=== PATIENT | male | born 1945 | race Caucasian/White ===

== ENCOUNTER → 2020-12-24 | Outpatient (CLI) | payer MEDICARE ==
--- NOTE | 2020-12-24 13:28 | Diagnostic Imaging Report ---
INDICATION: Bilateral knee pain with inflammatory polyarthropathy. Four views nonweightbearing. AP and lateral views of both knees show [id number] arthritic changes throughout the joint spaces with mild narrowing of the joint spaces and mild hypertrophic changes along the medial and lateral tibial plateau and femoral condyle. Patellofemoral joints show good alignment with mild hypertrophic change. Articulating surfaces are smooth without evidence of cortical fractures. No chondrocalcinosis or loose body. IMPRESSION: [id number] arthritic changes noted throughout both knees. Dictated by: Dictated on workstation # [id number]
== END ==
LOC: RAD FS 09:36
PROVIDERS: ATTEND Emergency Medicine
DX: M17.0 Bilateral primary osteoarthritis of knee (principal); M06.4 Inflammatory polyarthropathy

== ENCOUNTER → 2021-02-07 | Outpatient (CLI) | payer MEDICARE ==
--- NOTE | 2021-02-07 08:39 | Diagnostic Imaging Report ---
EXAMINATION: CT Abdomen Pelvis without contrast. TECHNIQUE: Multiple contiguous axial images were obtained through the abdomen and pelvis without the use of intravenous contrast. All CT scans use one or more of the following dose optimizing techniques: automated exposure control, MA and/or KvP adjustment based on a patient size and exam type, or iterative reconstruction. HISTORY: PROSTATE CANCER COMPARISON: None available. FINDINGS: Limited views of the lower thorax are unremarkable. The liver is normal without focal lesion. There is no biliary ductal dilation. Gallbladder is normal. There is a 6.5 x 5.2 cm mass centered in the body of the pancreas. Spleen is normal. Adrenal glands are normal. There is an indeterminate 18 mm right adrenal nodule. There are areas of cortical scarring in both kidneys. There is no hydronephrosis. Urinary bladder is normal. Visualized bowel is normal in caliber without obstruction or inflammation. No free fluid or air. No abdominal or pelvic lymphadenopathy. Aorta is normal in caliber without aneurysm. There are no suspicious osseus lesions. There is a bone island in the right ilium. IMPRESSION: 1. Large mass centered in the body of the pancreas. While this could represent metastatic prostate cancer, favored to represent a primary pancreatic neoplasm. Pancreas protocol CT is recommended. 2. Indeterminate right renal lesion. This can be further evaluated at the same time as the pancreatic lesion with a pancreas protocol CT. Dictated by: Dictated on workstation # [id number]
--- NOTE | 2021-02-07 13:46 | Diagnostic Imaging Report ---
INDICATION: Prostate cancer. Patient was administered 22.8 mCi technetium 99m MDP intravenously and whole-body imaging was performed after a 3-hour delay. No prior bone scans are available for comparison. There is normal uptake of activity by the axial and appendicular skeleton. There is uptake of activity by both kidneys with excretion into the urinary bladder. There does appear to be some generalized uptake involving an upper thoracic vertebral body, approximately T2. There is also uptake involving a lower lumbar vertebral body, approximately L4 or L5. No corresponding abnormality in the lower lumbar spine is seen on the CT study performed earlier the same day. There are degenerative changes at this level. No other suspicious foci are seen. There are some degenerative changes involving bilateral knees as well as the left foot. IMPRESSION: Questionable uptake involving upper thoracic and lower lumbar vertebral body. The remainder of the study demonstrates degenerative uptake. No other suspicious foci are seen. Dictated by: Dictated on workstation # [id number]
== END ==
LOC: CARD 09:00
PROVIDERS: ATTEND Urology
DX: C61 Malignant neoplasm of prostate (principal); N28.9 Disorder of kidney and ureter, unspecified
CPT/HCPCS: 74176; 78306; A9503

== ENCOUNTER → 2021-02-11 | Outpatient (CLI) | payer MEDICARE ==
[~2021-02-11] MED LIST: BARIUM SUSPENSION 2.1% (VANILLA SILQ) 450 ML PO ONE; CATHETER FLUSH 10 ML SYR IV PRN; HOLD METFORMIN - RECEIVED CONTRAST 20 ML VIAL IV SCH; IOHEXOL 350 MG/ML 100 ML (OMNIPAQUE 350) VIAL IV ONE; NS 100 ML (IVPB) BAG IV ONE
[2021-02-11 09:58] LABS: CREATININE SERUM 1.29 MG/DL (0.60-1.30)
--- NOTE | 2021-02-11 10:53 | Diagnostic Imaging Report ---
EXAMINATION: CT Abdomen Pelvis with and without intravenous contrast. TECHNIQUE: Precontrast acquisitions were acquired through the abdomen and pelvis. Multiple contiguous axial images were obtained through the abdomen and pelvis after the administration of intravenous contrast. All CT scans use one or more of the following dose optimizing techniques: automated exposure control, MA and/or KvP adjustment based on a patient size and exam type, or iterative reconstruction. HISTORY: Pancreatic mass COMPARISON: 02/07/2021 FINDINGS: The pancreatic mass is solid and enhancing with internal areas of hypoattenuation potentially representing necrosis. It measures 6.4 x 4.8 x 4.5 cm. It abuts 180 degrees of the splenic artery and 90 degrees of the splenic vein. There is no involvement of the celiac or superior mesenteric arteries. There is no involvement of the hepatic arteries. There is no involvement of the portal vein or superior mesenteric vein. There is no enhancement within the right renal lesion likely representing a proteinaceous or hemorrhagic cyst. There are a few areas of scarring in the kidneys. There is an area of scarring in the interpolar zone of the left kidney. There is no hydronephrosis. Urinary bladder is normal. Limited views of the lower thorax are unremarkable. The liver is normal without focal lesion. There is no biliary ductal dilation. Gallbladder is normal. Spleen is normal. Adrenal glands are normal. Visualized bowel is normal in caliber without obstruction or inflammation. No free fluid or air. No abdominal or pelvic lymphadenopathy. Aorta is normal in caliber without aneurysm. There are no suspicious osseus lesions. IMPRESSION: 1. Large pancreatic mass with solid enhancing components and areas of internal low attenuation which may represent cystic change or necrosis. It abuts the splenic artery and vein but does not involve the other vasculature. This is highly concerning for pancreatic malignancy. 2. The renal lesion is nonenhancing consistent with a proteinaceous or hemorrhagic cyst, benign finding for which no followup is needed. Dictated by: Dictated on workstation # [id number]
== END ==
LOC: RAD FS 08:54
PROVIDERS: ATTEND Urology
DX: K86.89 Other specified diseases of pancreas (principal); N28.9 Disorder of kidney and ureter, unspecified
CPT/HCPCS: 36415; 74178; 82565; 84520

== ENCOUNTER → 2021-03-01 | Outpatient (CLI) | payer MEDICARE ==
--- NOTE | 2021-03-01 14:44 | Diagnostic Imaging Report ---
INDICATION: Pancreatic mass. Serum blood glucose level at time of injection is 113 g/dL. Patient was administered 14.6 mCi F-18 FDG intravenously in the left antecubital location and PET imaging was performed from the top of skull to mid thighs. Noncontrast CT was also performed for attenuation correction and anatomic correlation. Comparison is made with the recent CT study from 02/11/2021. No prior PET study is available for comparison. There is symmetric activity throughout the brain. There is a mucous retention cyst or polyp in the left maxillary sinus. There is a large cystic mass in the right lobe of the thyroid. Dedicated thyroid ultrasound would be recommended. There is some activity along the medial aspect of the right lobe of the thyroid with an SUV max of 4.8. No definite mediastinal or hilar hypermetabolism is seen. No pulmonary parenchymal hypermetabolism is identified. Only low level activity is identified within the known pancreatic body mass. No regions of significant hypermetabolism are identified. No suspicious hypermetabolism in the abdomen or pelvis is identified. There is physiologic activity throughout the gastrointestinal and genitourinary tracts. IMPRESSION: 1. Right thyroid mass which does show some hypermetabolism. Dedicated thyroid ultrasound is recommended for further evaluation. 2. No definite hypermetabolism involving the known pancreatic mass is identified. Based on CT findings, malignancy is still considered. No hypermetabolic lymphadenopathy in the abdomen or pelvis is identified. Dictated by: Dictated on workstation # [id number]
== END ==
LOC: RAD 09:48
PROVIDERS: ATTEND Urology
DX: E07.89 Other specified disorders of thyroid (principal); K86.89 Other specified diseases of pancreas
CPT/HCPCS: 78815; A9552

== ENCOUNTER → 2021-07-06 | Outpatient (CLI) | payer MEDICARE ==
[2021-07-06 09:30] LABS: HEMATOCRIT 45 % (40-54); HEMOGLOBIN 14.7 g/dL (13.3-17.7); MEAN CORPUSCULAR HEMOGLOBIN 32 pg (25-34); MEAN CORPUSCULAR HGB CONC 33 g/dL (32-36); MEAN CORPUSCULAR VOLUME 97 fL (80-99); MEAN PLATELET VOLUME 9.4 fL (9.0-12.2); PLATELET COUNT 222 10^3/uL (130-400); WHITE BLOOD COUNT 8.4 10^3/uL (4.3-11.0)
[2021-07-06 09:31] LABS: BASOPHILS % (AUTO) 1 % (0-10); EOSINOPHILS # (AUTO) 0.2 10^3/uL (0.0-0.3); EOSINOPHILS % (AUTO) 2 % (0-10); LYMPHOCYTES % (AUTO) 12 % (12-44); MONOCYTES # (AUTO) 0.6 X 10^3 (0.0-1.0); MONOCYTES % (AUTO) 8 % (0-12); NEUTROPHILS # (AUTO) 6.5 X 10^3 (1.8-7.8); NEUTROPHILS % (AUTO) 77 % (42-75)
[2021-07-06 09:55] LABS: POTASSIUM 4.1 MMOL/L (3.6-5.0)
[2021-07-06 09:56] LABS: CREATININE SERUM 1.3 MG/DL (0.60-1.30)
[2021-07-06 09:57] LABS: ALBUMIN 4.1 GM/DL (3.2-4.5); BILIRUBIN,TOTAL 0.9 MG/DL (0.1-1.0); CALCIUM 9.5 MG/DL (8.5-10.1); TOTAL PROTEIN 6.5 GM/DL (6.4-8.2)
--- NOTE | 2021-07-06 11:56 | Diagnostic Imaging Report ---
PROCEDURE: CT abdomen and pelvis with and without contrast. TECHNIQUE: Precontrast acquisitions were acquired through the abdomen and pelvis. Multiple contiguous axial images were obtained through the abdomen and pelvis after the administration of intravenous contrast. Auto Exposure Controls were utilized during the CT exam to meet ALARA standards for radiation dose reduction. INDICATION: Malignant neoplasm of prostate COMPARISON: 02/11/2021. There is bulky mass involving the body of the pancreas measuring approximately 7.2 x 5.0 x 4.4 cm. This appears slightly decreased in overall size when compared to previous study. No significant pancreatic ductal dilatation is identified. There is no significant fat plane between the pancreatic mass and the splenic vein as well as splenic artery. Splenic vein and portal vein are patent. There is no evidence of hepatic, gallbladder, splenic or adrenal gland lesion. Kidneys are also stable stable in appearance with diffuse cortical thinning and several cortical cyst. There is no hydronephrosis. No retroperitoneal adenopathy is identified. There is no evidence of peritoneal free fluid. There is mild hiatal hernia. The appendix has a normal appearance. Unopacified urinary bladder is unremarkable in appearance. The prostate gland is somewhat nodular in appearance without discrete mass identified. There is mild asymmetric enlargement of the right seminal vesicle. Seminal vesicles are stable in overall appearance. Sclerotic foci within the right iliac bone above the hip joint are stable without evidence of destruction or periosteal reaction. Note is made of fatty atrophy within gluteal and upper thigh musculature. IMPRESSION: Continued dominant bulky mass in the body of the pancreas which may be slightly decreased in overall volume compared to previous study. There is no evidence of metastatic disease within the abdomen or pelvis. There is mild nodularity of the prostate gland and right seminal vesicle without discrete mass identified. These findings have not appreciably changed. Dictated by: Dictated on workstation # [id number]
== END ==
LOC: RAD FS 09:04
PROVIDERS: ATTEND Internal Medicine Hematology & Oncology
DX: C61 Malignant neoplasm of prostate (principal); K86.2 Cyst of pancreas
CPT/HCPCS: 36415; 74178; 80053; 84153; 85025

== ENCOUNTER 2021-07-12 09:22 | Outpatient (RCR) | payer MEDICARE ==
[2021-04-14 13:49] LABS: BASOPHILS % (AUTO) 0 % (0-10); EOSINOPHILS # (AUTO) 0.1 10^3/uL (0.0-0.3); EOSINOPHILS % (AUTO) 1 % (0-10); HEMATOCRIT 46 % (40-54); HEMOGLOBIN 14.7 g/dL (13.3-17.7); LYMPHOCYTES # (AUTO) 0.6 10^3/uL (1.0-4.0); LYMPHOCYTES % (AUTO) 7 % (12-44); MEAN CORPUSCULAR HEMOGLOBIN 31 pg (25-34); MEAN CORPUSCULAR HGB CONC 32 g/dL (32-36); MEAN CORPUSCULAR VOLUME 97 fL (80-99); MEAN PLATELET VOLUME 9.5 fL (9.0-12.2); MONOCYTES # (AUTO) 0.3 10^3/uL (0.0-1.0); MONOCYTES % (AUTO) 4 % (0-12); NEUTROPHILS # (AUTO) 7.4 10^3/uL (1.8-7.8); NEUTROPHILS % (AUTO) 86 % (42-75); PLATELET COUNT 184 10^3/uL (130-400); WHITE BLOOD COUNT 8.6 10^3/uL (4.3-11.0)
[2021-04-14 14:13] LABS: ALANINE AMINOTRANSFERASE 16 U/L (0-55); ALBUMIN 3.9 GM/DL (3.2-4.5); ALKALINE PHOSPHATASE 89 U/L (40-136); BILIRUBIN,TOTAL 1.3 MG/DL (0.1-1.0); BUN/CREATININE RATIO 13; CALCIUM 9.7 MG/DL (8.5-10.1); CARBON DIOXIDE 27 MMOL/L (21-32); CHLORIDE 105 MMOL/L (98-107); CREATININE SERUM 1.15 MG/DL (0.60-1.30); GFR ESTIMATED > 60; GLUCOSE 118 MG/DL (70-105); POTASSIUM 4.5 MMOL/L (3.6-5.0); SODIUM 140 MMOL/L (135-145); TOTAL PROTEIN 7.3 GM/DL (6.4-8.2)
== END 2021-07-13 | disposition home or self-care (01) ==
LOC: ONC 09:22
PROVIDERS: ATTEND Internal Medicine Hematology & Oncology
DX: C61 Malignant neoplasm of prostate (principal); K86.89 Other specified diseases of pancreas; I10 Essential (primary) hypertension; E78.00 Pure hypercholesterolemia, unspecified
CPT/HCPCS: 80053; 82378; 84153; 85025; 86301; G0463; 99213; 99214

== ENCOUNTER 2021-07-20 09:36 | Outpatient (RCR) | payer MEDICARE | END 2021-10-18 | disposition home or self-care (01) | LOC: ONC 09:36 | PROVIDERS: ATTEND Internal Medicine Hematology & Oncology | DX: C61 Malignant neoplasm of prostate (principal); K86.89 Other specified diseases of pancreas; I10 Essential (primary) hypertension; E78.00 Pure hypercholesterolemia, unspecified | CPT/HCPCS: 99204; 99214 ==

== ENCOUNTER → 2021-08-04 | Outpatient (CLI) | payer MEDICARE ==
--- NOTE | 2021-08-04 15:34 | Diagnostic Imaging Report ---
PROCEDURE: US Thyroid. TECHNIQUE: Multiple real-time grayscale images were obtained of the thyroid in various projections. INDICATION: Thyroid mass demonstrated on PET. The right thyroid lobe is enlarged and heterogeneous measuring 5.9 x 5.1 x 4.0 cm. It is dominated by a predominantly cystic mass occupying its mid to upper third measuring 4.4 x 3.7 x 2.7 cm. Inferior to this cystic lesion is a circumscribed solid but hyperechoic mass measuring 2.7 cm long axis in its lower pole. The left thyroid lobe is 4.2 x 2.1 x 1.6 cm. It shows some heterogeneity of the echotexture but no discrete solid or cystic left lobe mass. The isthmus is 2 mm thick, nonfocal and unremarkable. IMPRESSION: A 2.7 cm echogenic right lobe solid mass in its lower pole is classified as a TI-RADS 3 lesion. This is mildly suspicious. Given its size and appearance, this could be either followed at 1, 3 and 5 year intervals or considered for sono fine-needle aspiration biopsy. The other right lobe mass is almost entirely cystic and benign. Dictated on workstation # [id number]
== END ==
LOC: RAD FS 09:45
PROVIDERS: ATTEND Internal Medicine Hematology & Oncology
DX: E04.1 Nontoxic single thyroid nodule (principal)
CPT/HCPCS: 76536

== ENCOUNTER 2021-10-20 05:41 | Outpatient (CLI) | payer MEDICARE ==
[~2021-10-20] VITALS: Ht 182.9 cm; Wt 120.5 kg
[2021-10-20] MEDS ORDERED: MELO-170 PO (11:12)
[2021-10-20] MEDS ORDERED: FAMO-119 PO (11:12)
[2021-10-20] MEDS ORDERED: LISI1TAB46 PO (11:12)
[2021-10-20] MEDS ORDERED: ALLO300T2 PO (11:12)
[2021-10-20] MEDS ORDERED: VERA40TA2 PO (11:12)
[2021-10-20] MEDS ORDERED: EZET10TA49 PO (11:12)
[2021-10-20] MEDS ORDERED: FURO20TA4 PO (11:12)
[2021-10-20] MEDS ORDERED: HYDR-3922 PO (11:12)
== END 2021-10-20 11:30 | disposition home or self-care (01) ==
LOC: PREOP 05:41
PROVIDERS: ATTEND Urology
DX: Z01.818 Encounter for other preprocedural examination (principal)

== ENCOUNTER 2021-10-26 07:57 | Day surgery (SDC) | payer MEDICARE ==
[2021-10-26] VITALS (10 sets, daily range): BP systolic 99–184; BP diastolic 61–97
[~2021-10-26] VITALS: Ht 182.9 cm; Wt 120.5 kg
--- NOTE | 2021-10-26 07:36 | Progress Note-Pre Operative ---
Pre-Operative Progress Note H&P Reviewed The H&P was reviewed, patient examined and no changes noted. Date Seen by Provider: Oct 26, 2021 Time Seen by Provider: 09:16 Date H&P Reviewed: Oct 26, 2021 Time H&P Reviewed: 09:16 Pre-Operative Diagnosis: CA PROSTATE SHIVA EID MD Oct 26, 2021 07:36
--- NOTE | 2021-10-26 07:37 | Progress Note-Post Operative ---
Post-Operative Progess Note Surgeon (s)/Nurseryperson (s) Surgeon SHIVA EID MD Nurseryperson: NONE Pre-Operative Diagnosis CA PROSTATE Post-Operative Diagnosis SAME Procedure & Operative Findings Date of Procedure 10/26/21 Procedure Performed/Findings SPACE OAR PLACEMENT Anesthesia Type GENERAL Estimated Blood Loss Estimated blood loss (mL): NEGLIGIBLE Specimens/Packing Specimens Removed NONE Packing: NONE SHIVA EID MD Oct 26, 2021 07:37
--- NOTE | 2021-10-26 07:38 | Discharge Inst-Urology ---
Discharge Inst-Urology Reconcile Patient Problems Problems Reviewed?: Yes Final Diagnosis CAP Patient Instructions/Follow Up Plan/Assessment/Instructions Please make appointment to been seen in office in 4 weeks. Increase oral fluids for 48 hours and then as needed. Diet and Activity as tolerated. If questions or concerns contact your physician Or seek help at emergency department. SHIVA EID MD Oct 26, 2021 07:38
[~2021-10-26 07:57] MED LIST changes: +ALLO300T2 PO; -BARIUM SUSPENSION 2.1% (VANILLA SILQ) 450 ML PO ONE; -CATHETER FLUSH 10 ML SYR IV PRN; +EZET10TA49 PO; +FAMO-119 PO; +FURO20TA4 PO; -HOLD METFORMIN - RECEIVED CONTRAST 20 ML VIAL IV SCH; +HYDR-3922 PO; -IOHEXOL 350 MG/ML 100 ML (OMNIPAQUE 350) VIAL IV ONE; +LISI1TAB46 PO; +MELO-170 PO; -NS 100 ML (IVPB) BAG IV ONE; +VERA40TA2 PO
[2021-10-26] MEDS ORDERED: cefTRIAXone 1 GM PRE-MIX 50 ML IV ONE (08:15)
[2021-10-26] MEDS ORDERED: LACTATED RINGERS 1,000 ML IV PRN (08:15)
[2021-10-26] MEDS ORDERED: proPOfol 200 MG/20 ML (DIPRIVAN) VIAL IV ONE (09:45)
[2021-10-26] MEDS ORDERED: SEVOFLURANE (ULTANE) 15 ML INHAL SOLN ONE (09:45)
[2021-10-26] MEDS ORDERED: ONDANSETRON 4 MG/2 ML (SDV) Z0FRAN ONE (09:45)
[2021-10-26] MEDS ORDERED: LIDOCAINE PF 2% 5 ML (XYLOCAINE) VIAL ONE (09:45)
[2021-10-26] MEDS ORDERED: fentaNYL INJ 100 MCG/2 ML AMP ONE (09:45)
[2021-10-26] MEDS ORDERED: NEOSPORIN + PAIN RELIEF CREAM 15 GM ONE (10:08)
[2021-10-26] MEDS ORDERED: ONDANSETRON 4 MG/2 ML (SDV) Z0FRAN IVP PRN (10:30)
[2021-10-26] MEDS ORDERED: HYDROmorphone 2 MG/ML VIAL (DILAUDID) IV ONE (10:30)
[2021-10-26] MEDS ORDERED: CIPR-225 PO (10:50)
[2021-10-26] MEDS ORDERED: KETO10TA PO (10:50)
[2021-10-26] MEDS ORDERED: METO50TA15 PO (11:04)
[2021-10-26] MEDS ORDERED: PRD10T (11:05)
--- NOTE | 2021-10-27 11:04 | Anesthesia-General Post-Op ---
General Patient Condition Mental Status/LOC: Same as Preop Cardiovascular: Satisfactory Nausea/Vomiting: Absent Respiratory: Satisfactory Pain: Controlled Complications: Absent Post Op Complications Complications None Follow Up Care/Instructions Patient Instructions None needed. Anesthesia/Patient Condition Patient Condition Patient is doing well, no complaints, stable vital signs, no apparent adverse anesthesia problems. No complications reported per nursing. D/C home per [facility] [place] Criteria: Yes JAMEL WORRELL CRNA Oct 27, 2021 11:04
== END 2021-10-26 12:00 | disposition home or self-care (01) ==
LOC: SDC 07:57
PROVIDERS: ATTEND Urology
DX: C61 Malignant neoplasm of prostate (principal); I25.10 Atherosclerotic heart disease of native coronary artery without angina pectoris; M19.90 Unspecified osteoarthritis, unspecified site; K21.9 Gastro-esophageal reflux disease without esophagitis; I10 Essential (primary) hypertension; E66.9 Obesity, unspecified; F17.200 Nicotine dependence, unspecified, uncomplicated; Z68.36 Body mass index [BMI] 36.0-36.9, adult; Z79.899 Other long term (current) drug therapy
CPT/HCPCS: 55874; 87081; C1889

== ENCOUNTER → 2021-11-21 | Outpatient (RCR) | payer MEDICARE ==
[~2021-11-21] MED LIST changes: +CIPR-225 PO; +KETO10TA PO; +METO50TA15 PO; +PRD10T
== END | disposition home or self-care (01) ==
LOC: ONC 11-01 08:42
PROVIDERS: ATTEND Internal Medicine Hematology & Oncology
DX: Z51.0 Encounter for antineoplastic radiation therapy (principal); C61 Malignant neoplasm of prostate; K86.89 Other specified diseases of pancreas; I10 Essential (primary) hypertension; E78.00 Pure hypercholesterolemia, unspecified; K21.9 Gastro-esophageal reflux disease without esophagitis
CPT/HCPCS: 77300; 77301; 77336; 77338; 77385

== ENCOUNTER → 2021-12-19 | Outpatient (RCR) | payer MEDICARE | END | disposition home or self-care (01) | LOC: ONC 11-22 09:13 | PROVIDERS: ATTEND Radiology Radiation Oncology | DX: Z51.0 Encounter for antineoplastic radiation therapy (principal); C61 Malignant neoplasm of prostate; K86.89 Other specified diseases of pancreas; I10 Essential (primary) hypertension; E78.00 Pure hypercholesterolemia, unspecified; K21.9 Gastro-esophageal reflux disease without esophagitis | CPT/HCPCS: 77385; G0463; 77300; 77336; 77338 ==

== ENCOUNTER → 2022-01-03 | Outpatient (CLI) | payer MEDICARE ==
--- NOTE | 2022-01-03 17:42 | Diagnostic Imaging Report ---
PROCEDURE: US Thyroid. TECHNIQUE: Multiple real-time grayscale images were obtained of the thyroid in various projections. INDICATION: Right lobe mass. FINDINGS: Right thyroid lobe is 5.4 x 2.2 x 4.7 cm, unchanged from prior. 2.5 cm predominately hyperechoic nodule, solid, in the lower pole of the right lobe is unchanged. An upper pole lesion is nearly entirely cystic measuring 4.3 cm, unchanged. The left thyroid lobe is 3.6 x 1.3 x 1.4 cm, nonfocal and unremarkable. IMPRESSION: A TI-RADS 3 hyperechoic solid vascularized mass in the lower pole of the right lobe is unchanged from prior. A predominantly cystic nodule in the upper pole of the right lobe is also stable and benign. Dictated by: Dictated on workstation # [id number]
== END ==
LOC: RAD 11:01
PROVIDERS: ATTEND Internal Medicine Hematology & Oncology
DX: E04.1 Nontoxic single thyroid nodule (principal)
CPT/HCPCS: 76536

== ENCOUNTER 2022-01-10 09:05 | Outpatient (RCR) | payer MEDICARE | END 2022-01-19 | disposition home or self-care (01) | LOC: ONC 09:05 | PROVIDERS: ATTEND Radiology Radiation Oncology | DX: Z51.0 Encounter for antineoplastic radiation therapy (principal); C61 Malignant neoplasm of prostate; K86.89 Other specified diseases of pancreas; I10 Essential (primary) hypertension; E78.00 Pure hypercholesterolemia, unspecified; K21.9 Gastro-esophageal reflux disease without esophagitis | CPT/HCPCS: 77385; G0463; 77336 ==

== ENCOUNTER 2022-02-16 09:14 | Outpatient (RCR) | payer MEDICARE | END 2022-02-18 | LOC: ONC 09:14 | PROVIDERS: ATTEND Radiology Radiation Oncology | DX: C61 Malignant neoplasm of prostate (principal); I10 Essential (primary) hypertension; E78.00 Pure hypercholesterolemia, unspecified; K21.9 Gastro-esophageal reflux disease without esophagitis | CPT/HCPCS: 84153; G0463; 36415; 99213 ==

== ENCOUNTER → 2022-06-15 | Outpatient (CLI) | payer MEDICARE ==
--- NOTE | 2022-06-15 17:20 | Diagnostic Imaging Report ---
PROCEDURE: US Thyroid. TECHNIQUE: Multiple real-time grayscale images were obtained of the thyroid in various projections. INDICATION: Right thyroid nodules COMPARISON: 01/03/2022 FINDINGS: Right thyroid lobe: Size (cm): 6.1 x 5.0 x 3.6 Echotexture: Normal Vascularity: Normal Nodules: There is a large 4.4 cm heterogeneous nodule is stable in size since the prior exam. This is cystic and solid, hypoechoic and appears to have heterogeneous internal debris which is new since the prior exam, could represent blood products. There is also a solid isoechoic nodule measuring 2.1 cm in the posterior mid right thyroid. This measures up to 2.1 cm, compared to 2.5 cm previously. Isthmus: Size (cm): 0.3 Nodules: None Left thyroid lobe: Size (cm): 3.8 x 1.7 x 1.5 Echotexture: Mildly heterogeneous Vascularity: Normal Nodules: None Impression: 1. Large mixed solid and cystic nodule in the right thyroid appears stable in size, although now with internal debris in the cystic portion. This qualifies for FNA based on TI-RADS criteria if not previously performed. 2. Solid isoechoic nodule in the posterior right thyroid measures mildly decreased in size. Recommend followup in one year. Dictated by: Dictated on workstation # [id number]
== END ==
LOC: RAD FS 09:16
PROVIDERS: ATTEND Nurse Practitioner Adult Health
DX: E04.1 Nontoxic single thyroid nodule (principal)
CPT/HCPCS: 76536

== ENCOUNTER → 2022-07-17 | Outpatient (CLI) | payer MEDICARE ==
[~2022-07-17] VITALS: Ht 185.4 cm; Wt 118.2 kg
[~2022-07-17] MED LIST changes: +LIDOCAINE 1% INJ 10 ML VIAL INJ ONE
--- NOTE | 2022-07-17 12:50 | Diagnostic Imaging Report ---
INDICATION: Right thyroid mass. Patient presents for ultrasound guided fine needle aspiration and Rotex biopsy. DETAILS OF THE PROCEDURE: The patient was brought to the procedure room and placed on the table in the supine position. Ultrasound imaging of the right neck was performed to evaluate for an appropriate entry site. The right neck was then prepped and draped in the usual sterile fashion. A small amount of 1% lidocaine was utilized for local anesthesia. A total of four passes was made into the mixed solid and cystic mass in the right lobe of the thyroid utilizing 25-gauge needles and fine needle aspiration technique. A single pass was made with a Rotex needle and a Rotex biopsy was performed. Hemostasis was obtained. The patient tolerated the procedure well and left the Department in stable condition. IMPRESSION: Successful ultrasound-guided fine-needle aspiration and Rotex biopsy of a mixed solid and cystic mass in the right lobe of the thyroid. Pathology results are currently pending. Dictated by: Dictated on workstation # [id number]
== END ==
LOC: RAD 11:30
PROVIDERS: ATTEND Internal Medicine Hematology & Oncology
DX: E04.1 Nontoxic single thyroid nodule (principal)
CPT/HCPCS: 10005

== ENCOUNTER → 2022-09-19 | Outpatient (CLI) | payer MEDICARE ==
[~2022-09-19] MED LIST changes: -LIDOCAINE 1% INJ 10 ML VIAL INJ ONE
--- NOTE | 2022-09-19 10:58 | Diagnostic Imaging Report ---
PROCEDURE: US Thyroid. TECHNIQUE: Multiple Real-time grayscale images were obtained of the thyroid in various projections. INDICATION: Thyroid nodule. COMPARISON: 06/15/2022. FINDINGS: Right thyroid lobe: Size (cm): 5.4 x 4.4 x 4.2. Echotexture: Mildly heterogeneous. Vascularity: Normal. Nodules: In the superior right thyroid, there is a 4.6 cm nodule with cystic and solid components. This was biopsied in June 2022. This previously measured 4.4 cm. In the inferior right thyroid, there is a 2.6 cm mostly solid, circumscribed isoechoic nodule. This was measured at 2.5 cm on 01/03/2022 and 2.7 cm on 08/04/2021. Isthmus: Size (cm): 0.4. Nodules: None. Left thyroid lobe: Size (cm): 3.5 x 1.7 x 1.4. Echotexture: Normal. Vascularity: Normal. Nodules: None. IMPRESSION: 1. The large, previously biopsied solid and cystic nodule in the upper right thyroid is stable in size since the prior exam. 2. TI-RADS 3 nodule in the inferior right thyroid measures 2.6 cm but appears stable since 08/04/2021. This does qualify for FNA based on criteria; otherwise, recommend followup ultrasound in 1 year. Dictated by: Dictated on workstation # [id number]
== END ==
LOC: RAD FS 07:37
PROVIDERS: ATTEND Internal Medicine Hematology & Oncology
DX: E04.2 Nontoxic multinodular goiter (principal)
CPT/HCPCS: 76536

== ENCOUNTER → 2022-12-28 | Outpatient (CLI) | payer MEDICARE ==
--- NOTE | 2022-12-28 14:41 | Diagnostic Imaging Report ---
Indication: Bilateral knee pain AP, oblique, and lateral views of both knees are obtained. No fracture or acute bony abnormality is seen. There is moderate medial and lateral joint space now both sides a vascular malformation. There is prominent patellofemoral spurring on both sides. There is symmetric bilateral knee joint effusions. IMPRESSION: Osteoarthritic changes of both knees with bilateral joint effusions. No acute finding. Dictated by: Dictated on workstation # [id number]
== END ==
LOC: RAD FS 09:45
PROVIDERS: ATTEND Nurse Practitioner
DX: M17.0 Bilateral primary osteoarthritis of knee (principal)